=== PATIENT | male | born 1945 | race Caucasian/White ===

== ENCOUNTER 2018-04-29 13:00 | Emergency (ER) | payer BC ==
[~2018-04-29] VITALS: Ht 180.3 cm; Wt 83.9 kg
--- NOTE | 2018-04-29 13:35 | RAD ---
CT CODE STROKE HEAD WO Indication: RIGHT TEMPORAL HEADACHE, SLURRED SPEECH AND DROOLING Exposure: One or more of the following individualized dose reduction techniques were utilized for this examination: 1. Automated exposure control 2. Adjustment of the mA and/or kV according to patient size 3. Use of iterative reconstruction technique. Comparison: None are available. Contrast: None FINDINGS: Posterior fossa is unremarkable. No evidence of acute intracranial hemorrhage or abnormal extra-axial fluid collection. No evidence of mass effect or midline shift. Low-density in the white matter bilaterally, a nonspecific finding, but which is commonly due to chronic small vessel ischemic disease in a patient of this age. Prominence of ventricles and sulci, compatible with involutional change or atrophy. Visualized orbits are unremarkable. Visualized paranasal sinuses and mastoids are clear. No acute calvarial abnormality. Impression:Chronic findings as detailed above. Negative for acute intracranial hemorrhage or mass effect. FOR INTERNAL CODING PURPOSES Critical result: Findings discussed with Dr. Ansari at 04/29/2018 1:31 PM. RESULT CODE: (C) Electronically signed by: Pepe Dale MD (04/29/2018 1:31 PM) [id number]
[2018-04-29 13:41] LABS: HEMATOCRIT 37.9 % (39.0-53.0); HEMOGLOBIN 12.8 g/dL (13.0-17.5); RED BLOOD COUNT 4.05 x10^6/uL (4.30-5.70); RED CELL DISTRIBUTION WIDTH 12.8 % (11.5-14.5); WHITE BLOOD COUNT 6.2 x10^3/uL (4.0-11.0)
[2018-04-29 13:49] LABS: CALCIUM 9.2 mg/dL (8.5-10.1); CREATININE 1.2 mg/dL (0.7-1.3); GFR 59.9; POTASSIUM 4.1 mmol/L (3.5-5.1)
--- NOTE | 2018-04-29 14:14 | PHYS DOC ---
Past History Past Medical History: Hypertension Past Surgical History: Other Alcohol Use: None Drug Use: None Adult General Chief Complaint Chief Complaint: NEURO SYMPTOMS/DEFICITS HPI HPI 72-year-old male presents with concern for stroke. Patient noticed at 1 PM yesterday that he was drooling out of both sides of his mouth. Later in the day , he felt like maybe he had a facial droop. He did not feel any different except for a mild headache in the right temporal area. He called his physician today to talk about something else and mentioned the symptoms. His physician recommended he come to the emergency room immediately. On arrival the patient tells me that he is feeling well except for this low level headache in the right lutheran. He denies visual disturbance. He denies slurred speech. He states that his has not noticed a change in his voice. He denies instability or change in balance. He denies loss of coordination or decreased strength. He has been feeling well otherwise. He denies fever or chills. He has no history of TIA or stroke. Review of Systems Review of Systems Constitutional: Denies fever or chills [] Eyes: Denies change in visual acuity, redness, or eye pain [] HENT: Drooling[] Respiratory: Denies cough or shortness of breath [] Cardiovascular: No additional information not addressed in HPI [] GI: Denies abdominal pain, nausea, vomiting, bloody stools or diarrhea [] : Denies dysuria or hematuria [] Musculoskeletal: Denies back pain or joint pain [] Integument: Denies rash or skin lesions [] Neurologic: Denies headache, focal weakness or sensory changes [] Endocrine: Denies polyuria or polydipsia [] All other systems were reviewed and found to be within normal limits, except as documented in this note. Allergies Allergies Allergies Coded Allergies Type Severity Reaction Last Updated Verified No Known Drug Allergies 04/29/18 No Physical Exam Physical Exam Constitutional: Well developed, well nourished, no acute distress, non-toxic appearance. [] HENT: Normocephalic, atraumatic, bilateral external ears normal, oropharynx moist, no oral exudates, nose normal. [] Eyes: PERRLA, EOMI, conjunctiva normal, no discharge. [] Neck: Normal range of motion, no tenderness, supple, no stridor. [] Cardiovascular:Heart rate regular rhythm, no murmur [] Lungs & Thorax: Bilateral breath sounds clear to auscultation [] Abdomen: Bowel sounds normal, soft, no tenderness, no masses, no pulsatile masses. [] Skin: Warm, dry, no erythema, no rash. [] Back: No tenderness, no CVA tenderness. [] Extremities: No tenderness, no cyanosis, no clubbing, ROM intact, no edema. [] Neurologic: Alert and oriented X 3, normal motor function, normal sensory function, no focal deficits noted. Strength 5 out of 5 in bilateral upper and lower extremities. Smile is equal. Sensation is equal bilaterally. Mentation and speech is normal.[] Psychologic: Affect normal, judgement normal, mood normal. [] Current Patient Data Vital Signs Vital Signs Date Time Temp Pulse Resp B/P (MAP) Pulse Ox O2 Delivery O2 Flow Rate FiO2 04/29/18 13:10 97.9 66 18 97 Room Air Lab Results Laboratory Tests Test 04/29/18 13:30 04/29/18 13:37 White Blood Count 6.2 x10^3/uL (4.0-11.0) Red Blood Count 4.05 x10^6/uL (4.30-5.70) L Hemoglobin 12.8 g/dL (13.0-17.5) L Hematocrit 37.9 % (39.0-53.0) L Mean Corpuscular Volume 94 fL (79-100) Mean Corpuscular Hemoglobin 32 pg (25-35) Mean Corpuscular Hemoglobin Concent 34 g/dL (31-37) Red Cell Distribution Width 12.8 % (11.5-14.5) Platelet Count 274 x10^3/uL (140-400) Sodium Level 139 mmol/L (136-145) Potassium Level 4.1 mmol/L (3.5-5.1) Chloride Level 103 mmol/L (98-107) Carbon Dioxide Level 29 mmol/L (21-32) Anion Gap 7 (6-14) Blood Urea Nitrogen 18 mg/dL (8-26) Creatinine 1.2 mg/dL (0.7-1.3) Estimated GFR (Cockcroft-Gault) 59.9 Glucose Level 93 mg/dL (70-99) Calcium Level 9.2 mg/dL (8.5-10.1) Prothrombin Time 10.1 SEC (9.4-11.4) Prothrombin Time INR 1.0 (0.9-1.1) PTT 26 SEC (23-33) EKG EKG [] Radiology/Procedures Radiology/Procedures [] Impressions: CT CODE STROKE HEAD WO Indication: RIGHT TEMPORAL HEADACHE, SLURRED SPEECH AND DROOLING Exposure: One or more of the following individualized dose reduction techniques were utilized for this examination: 1. Automated exposure control 2. Adjustment of the mA and/or kV according to patient size 3. Use of iterative reconstruction technique. Comparison: None are available. Contrast: None FINDINGS: Posterior fossa is unremarkable. No evidence of acute intracranial hemorrhage or abnormal extra-axial fluid collection. No evidence of mass effect or midline shift. Low-density in the white matter bilaterally, a nonspecific finding, but which is commonly due to chronic small vessel ischemic disease in a patient of this age. Prominence of ventricles and sulci, compatible with involutional change or atrophy. Visualized orbits are unremarkable. Visualized paranasal sinuses and mastoids are clear. No acute calvarial abnormality. Impression:Chronic findings as detailed above. Negative for acute intracranial hemorrhage or mass effect. FOR INTERNAL CODING PURPOSES Critical result: Findings discussed with Dr. Mayberry at 04/29/2018 1:31 PM. RESULT CODE: (C) Course & Med Decision Making Course & Med Decision Making Pertinent Labs and Imaging studies reviewed. (See chart for details) The patient's head CT is negative for acute findings. His lab results are unremarkable. During his stay here, I was unable to see any deficits. The patient tells me that he has had headaches in the temporal region in the past and that this is not necessarily unusual. He is feeling fine otherwise. The patient is feeling better overall. At no time during his time in the ED did I see any deficits. With the patient. I offered him admission for further observation and he would strongly prefer to go home. He does live with his who can watch him. If any new symptoms develop, he will return to the emergency room. The patient has been working 16 hours a day 7 days a week recently and thinks this may have contributed. The patient is stable for discharge at this time. [] Dragon Disclaimer Dragon Disclaimer This electronic medical record was generated, in whole or in part, using a voice recognition dictation system. Departure Departure: Referrals: PCP,NO (PCP) JYOTI MAYBERRY DO Apr 29, 2018 14:14
[2018-04-29 15:05] VITALS: BP 151/89
== END 2018-04-29 15:10 | disposition home or self-care (01) ==
LOC: ER 13:00
DX: R51 Headache (principal); R29.810 Facial weakness; I10 Essential (primary) hypertension
CPT/HCPCS: 36415; 70450; 80048; 82947; 85027; 85610; 85730; 99285-25

== ENCOUNTER → 2018-08-26 | Outpatient (CLI) | payer BC, MEDICARE | END | disposition home or self-care (01) | LOC: LAB 10:10 | PROVIDERS: ATTEND Specialist | DX: R30.0 Dysuria (principal) | CPT/HCPCS: 87086 ==